=== PATIENT | male | born 1965 | race Caucasian/White ===

== ENCOUNTER → 2017-04-05 | Outpatient (CLI) | payer BC ==
[~2017-04-05] MED LIST: CONTRAST GIVEN MC PRN; IOHEXOL 240 MG/ML 50ML VIAL. PO ONE; IOHEXOL 300 MG/ML 100ML VIAL. IV ONE
--- NOTE | 2017-04-05 10:29 | KCIC ---
PROCEDURE CT scan of the abdomen and pelvis without and with contrast 04/05/2017 HISTORY Lower abdominal pain, right greater than left. TECHNIQUE Contiguous, 5 millimeter axial sections were obtained through the abdomen and pelvis without and with the use of intravenous contrast. Oral contrast material was administered prior to scanning. 100 cc of Omnipaque 300 were administered intravenously during this examination. One or more of the following individualized dose reduction techniques were utilized for this study: 1. Automated exposure control. 2. Adjustment of the mA and/or kV according to patient size. 3. Use of iterative reconstruction technique. FINDINGS No previous imaging studies are available for comparison. Images through the lung bases are within normal limits. The unenhanced images through the abdomen and pelvis demonstrate no renal or ureteral calculus. Calcifications are seen within the prostate gland. On the post-contrast images, a 1.2 centimeter rounded low attenuation lesion is seen involving the dome of the liver. This is consistent with a hepatic cyst. The spleen, pancreas, and adrenal glands are within normal limits. Several rounded low-attenuation lesions are seen involving both kidneys. These measure 1 centimeter to 3.7 centimeters in size. They likely represent cysts. Mild atheromatous/atherosclerotic plaque formation is seen involving abdominal aorta and its branches. The abdominal aorta tapers normally. The gallbladder is slightly contracted. No free fluid or free air is within the abdomen. There is no evidence of bowel obstruction. Air and stool is seen throughout the colon. The appendix is well-visualized is within normal limits. Images through the pelvis demonstrate the urinary bladder to be contracted. The prostate gland is enlarged likely related to BPH. It measures 5.3 x 4.9 x 4.7 centimeters in craniocaudal, transverse and AP dimensions. No free fluid is seen. Small loculated fluid collections are seen in the superolateral inguinal regions bilaterally, right greater than left. These measure 2.6 and 2 centimeters in size. 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 Minimal S-shaped curvature of the thoracolumbar spine is noted. Degenerative changes are seen involving lower thoracic and mid and lower lumbar spine and both hips. IMPRESSION 1. Loculated fluid collections are seen within the superolateral inguinal regions, right greater than left measuring 2.6 and 2 centimeters in size. 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 2. The prostate gland is enlarged likely related to BPH. 3. No acute abnormality is seen. Electronically signed by: Cesar Browning MD (April 05, 2017 10:27:32)
== END | disposition home or self-care (01) ==
LOC: KCIC CT 07:59
PROVIDERS: ATTEND Family Medicine
DX: R10.30 Lower abdominal pain, unspecified (principal)
CPT/HCPCS: 74178; Q9966; Q9967

== ENCOUNTER 2017-04-27 06:03 | Emergency (ER) | payer OTHER, BC ==
[~2017-04-27] VITALS: Ht 180.3 cm; Wt 86.2 kg
[~2017-04-27 06:03] MED LIST changes: -CONTRAST GIVEN MC PRN; +GELATIN SPONGE SIZE 100. ONE; -IOHEXOL 240 MG/ML 50ML VIAL. PO ONE; -IOHEXOL 300 MG/ML 100ML VIAL. IV ONE
--- NOTE | 2017-04-27 07:33 | RAD ---
Indication crush injury. AP and lateral views of the left forearm were obtained. There is extensive soft tissue injury. Scattered areas of subcutaneous emphysema are noted. The radius and ulna appear normal. The carpal bones and metacarpals are not completely evaluated. A fracture at the base of the fifth metacarpal is not excluded. There is possible fracture or dislocation of the carpal bones on the radial side. Clinical correlation as to the necessity for additional imaging of the hand or wrist advised
[2017-04-27] MEDS ORDERED: IBUP-1060 PO (07:44)
[2017-04-27] MEDS ORDERED: HYDR-971 PO (07:44)
[2017-04-27 07:58] VITALS: BP 154/90
--- NOTE | 2017-04-27 08:03 | PHYS DOC ---
Past Medical History Past Medical History: No Pertinent History Additional Past Medical Histor: pelvis fx. inguinal heria repair. R knee arthroscopy. Past Surgical History: No Surgical History Additional Past Surgical Histo: inguinal hernia repair. Additional Information: quit in 2008 Alcohol Use: None Drug Use: None Adult General Chief Complaint Chief Complaint: left arm crush injury [facility] HPI Patient is a 51 year old male who presents with left forearm crush injury, occurred during the 4am hour at work, arm trapped between two hydraulic pressure plates. Pt was able to quickly free arm, has 2 puncture wounds, states tetanus utd in last 4 years. Pt is able to feel his distal extremity and has pain in the forearm when moving the hand/supination/pronation. Pt denies any injection into the arm was possible with the crush injury. Denies other injuries, no pain in elbow, shoulder, wrist or hand. He took two aspirin before arriving. He drove here and would like to be able to drive home. Review of Systems Review of Systems Constitutional: Denies fever or chills [] Eyes: Denies change in visual acuity, redness, or eye pain [] HENT: Denies nasal congestion or sore throat [] Respiratory: Denies cough or shortness of breath [] Cardiovascular: No additional information not addressed in HPI [] GI: Denies abdominal pain, nausea, vomiting, bloody stools or diarrhea [] : Denies dysuria or hematuria [] Musculoskeletal: Denies back pain Integument: Denies rash or skin lesions [] Neurologic: Denies headache, focal weakness or sensory changes [] Allergies Allergies Allergies Coded Allergies Type Severity Reaction Last Updated Verified No Known Drug Allergies 04/05/17 No Physical Exam Physical Exam Constitutional: Well developed, well nourished, no acute distress, non-toxic appearance. [] HENT: Normocephalic, atraumatic, bilateral external ears normal, oropharynx moist, no oral exudates, nose normal. [] Eyes: PERRLA, EOMI, conjunctiva normal, no discharge. [] Neck: Normal range of motion, no tenderness, supple, no stridor. [] Cardiovascular:Heart rate regular rhythm Lungs & Thorax: Bilateral breath sounds clear to auscultation [] Skin: Warm, dry Back: No tenderness, no CVA tenderness. [] Extremities: left forearm swelling with mid anterior puncture wound with mild bleeding, posterior distal forearm puncture wound no bleeding, mild anterior forearm swelling, FROM of the pronation and supination, normal distal sensory, FROM with normal strength of the hand, cap refill 3 sec. FROM of the wrist, elbow and shoulder. Neurologic: Alert and oriented X 3, normal motor function, normal sensory function, no focal deficits noted. [] Psychologic: Affect normal, judgement normal, mood normal. [] Current Patient Data Vital Signs Vital Signs Date Time Temp Pulse Resp B/P (MAP) Pulse Ox O2 Delivery O2 Flow Rate FiO2 04/27/17 06:24 98.1 85 18 168/83 (111) 99 Room Air 98.1 EKG EKG [] Radiology/Procedures Radiology/Procedures left forearm reviewed by me without acute foreign body or bony fracture of the forearm, radiology read as possible fractures but reexamination of the patient and clinically no signs of fracture in areas noted by radiologist. [] Course & Med Decision Making Course & Med Decision Making Pertinent Labs and Imaging studies reviewed. (See chart for details) pt declined pain meds. XR neg for fracture. Wounds irrigated by nursing and hemostatic dressing applied. I talked with Dr. Demarco regarding this patient and she was in agreement of strict return precautions for compartment syndrome, infection or excessive bleeding. Pt is understanding and will return promptly if any are noted. He is to f/u with workmen's comp doc and Dr. Demarco. Dragon Disclaimer Racheal Disclaimer This electronic medical record was generated, in whole or in part, using a voice recognition dictation system. Departure Departure Impression: Primary Impression: Crush injury arm Disposition: HOME, SELF-CARE Condition: IMPROVED Referrals: WILFRID DEMARCO MD schedule follow-up with the orthopedic physician listed. Return immediately if you have any signs of compartment syndrome or infection of the puncture wounds. Patient Instructions: Compartment Syndrome-Brief, Puncture Wound, [id number]-[id number] Scripts Ibuprofen (IBUPROFEN) 800 Mg Tablet 800 MG PO PRN TID Y for PAIN, #20 TAB take with food or milk to avoid upsetting stomach Prov: HANG BROWNE MD 04/27/17 Hydrocodone/Apap 5-325 (NORCO 5-325 TABLET) 1 Each Tablet 1-2 EACH PO PRN Q6HRS Y for PAIN, #15 as needed for pain Prov: HANG BROWNE MD 04/27/17 HANG BROWNE MD Apr 27, 2017 08:03
== END 2017-04-27 08:04 | disposition home or self-care (01) ==
LOC: ER 06:03
DX: S57.82XA Crushing injury of left forearm, initial encounter (principal); X58.XXXA Exposure to other specified factors, initial encounter; Y93.89 Activity, other specified; Y99.0 Civilian activity done for income or pay; Y92.69 Other specified industrial and construction area as the place of occurrence of the external cause
CPT/HCPCS: 73090; 99284

== ENCOUNTER → 2019-05-22 | Outpatient (CLI) | payer BC ==
[~2019-05-22] MED LIST changes: -GELATIN SPONGE SIZE 100. ONE; +HYDR-3164 PO; +IBUP-1060 PO
--- NOTE | 2019-05-22 15:48 | KCIC ---
FOOT RIGHT 3V 05/22/2019 12:00 AM INDICATION: Heel pain for 2 weeks COMPARISON: None available. TECHNIQUE: 3 views of the right foot are provided. FINDINGS: There is no acute fracture or dislocation. Bone mineralization is within normal limits. Joint spaces are maintained. Regional soft tissues are within normal limits. There is no soft tissue gas or osseous erosion. Posterior calcaneal enthesophytes noted. IMPRESSION: No acute fracture or dislocation. Electronically signed by: Wendy Aguirre MD (05/22/2019 3:45 PM) [id number]
== END | disposition home or self-care (01) ==
LOC: KCIC 14:21
PROVIDERS: ATTEND Family Medicine
DX: M79.671 Pain in right foot (principal)
CPT/HCPCS: 73630